=== PATIENT | female | born 1995 ===

== ENCOUNTER 2022-06-07 16:48 | Emergency (ER) | payer MEDICAID, OTHER ==
[~2022-06-07] VITALS: Ht 160 cm; Wt 85.0 kg
[2022-06-07 17:49] VITALS: BP 133/76
[2022-06-07 18:20] LABS: Urine Bacteria NONE SEEN /hpf (None Seen); Urine Blood Negative /uL (Negative); Urine Specific Gravity 1.013 (1.001-1.035); Urine WBC 4 /hpf (0 - 5)
[2022-06-07] MEDS ORDERED: NITR-87 PO (20:28)
== END 2022-06-07 23:44 | disposition home or self-care (01) ==
LOC: ER 16:48
DX: O20.0 Threatened abortion (principal); O23.41 Unspecified infection of urinary tract in pregnancy, first trimester; N39.0 Urinary tract infection, site not specified; Z88.0 Allergy status to penicillin; Z3A.00 Weeks of gestation of pregnancy not specified
CPT/HCPCS: 36415; 76801; 76817; 81001; 84702